=== PATIENT | male | born 1990 | race Caucasian/White ===

== ENCOUNTER 2017-09-11 06:19 | Emergency (ER) | payer OTHER | END 2017-09-11 07:24 | disposition left against medical advice (07) | LOC: ER 07:12 | DX: Z53.21 Procedure and treatment not carried out due to patient leaving prior to being seen by health care provider (principal) ==

== ENCOUNTER 2025-01-16 08:09 | Emergency (ER) | payer MEDICAID, OTHER ==
[~2025-01-16] VITALS: Ht 170.2 cm; Wt 75.0 kg
[2025-01-16 08:11] VITALS: O2SAT 96
[2025-01-16 08:20] VITALS: RESP 24
[2025-01-16] MEDS: IPRATROPIUM BROMIDE (0.02%) 0.5MG/2.5ML NEB HHN ONE (08:43)
[2025-01-16] MEDS: ALBUTEROL (0.083%) 2.5MG/3ML NEB HHN SCH (08:43)
[2025-01-16 09:01] LABS: BASOPHILS % 0.5 % (0.0-2.0); EOSINOPHILS % 2.5 % (0.0-5.0); HEMATOCRIT. 45.2 % (42.0-52.0); HEMOGLOBIN. 15.1 g/dL (14.0-18.0); LYMPHOCYTES % 16.5 % (20.0-50.0); MEAN PLATELET VOLUME 10.4 fl (7.4-10.4); MONOCYTES % 7.9 % (2.0-8.0); NEUTROPHILS % 72.6 % (40.0-76.0); PLATELET 237 x1000/uL (130-400); RED BLOOD CELL COUNT 5.29 mill/uL (4.7-6.1); RED CELL DISTRIBUTION WIDTH 14.7 % (11.6-14.6)
[2025-01-16 09:16] LABS: CREATININE 0.8 mg/dL (0.6-1.3)
[2025-01-16 09:17] LABS: TROPONIN I HIGH SENSITIVITY < 4 ng/L (3.0-53); UREA NITROGEN BLOOD 8 mg/dL (9-23)
[2025-01-16 09:18] LABS: ASPARTATE AMINOTRANSFERASE 23 IU/L (<34); BILIRUBIN DIRECT 0.2 mg/dL (<=3.0)
[2025-01-16 09:19] LABS: BILIRUBIN TOTAL 0.6 mg/dL (0.1-1.0); PROTEIN TOTAL 6.6 g/dL (6.0-8.3)
[2025-01-16 09:56] LABS: BG BASE EXCESS -3.7 mmol/L (-2.0-3.0); BG CARBOXYHEMOGLOBIN 0.3 % (0.5-1.5); BG DEOXYHEMOGLOBIN 0.3 % (0.0-5.0); BG FRACTION INSPIRED OXYGEN 100; BG HCO3 ACT 19.9 mmol/L (21.0-28.0); BG METHEMOGLOBIN 0.2 % (0.5-1.5); BG OXYGEN SATURATION 99.7 % (94.0-98.0); BG OXYHEMOGLOBIN 99.2 % (94.0-98.0); BG PCO2 32.5 mmHg (35.0-48.0); BG PH 7.405 (7.350-7.450); BG PO2 618.0 mmHg (83.0-108.0); BG SAMPLE SITE RIGHT BRACHIAL; BG TOTAL HEMOGLOBIN 16.2 g/dL (13.5-17.5); BG VENT MODE MASK - BIPAP; BG VENT RATE 24.0 set
[2025-01-16 10:09] LABS: *AMPHETAMINES SCREEN URINE PRESUMPTIVE POSITIVE (NEGATIVE); *BARBITURATES SCREEN URINE NEGATIVE (NEGATIVE); *BENZODIAZEPINES SCREEN URINE PRESUMPTIVE POSITIVE (NEGATIVE); *COCAINE SCREEN URINE NEGATIVE (NEGATIVE); CANNABINOID URINE SCREEN NEGATIVE (NEGATIVE); ECSTASY MDMA SCREEN URINE NEGATIVE (NEGATIVE); METHADONE URINE SCREEN NEGATIVE (NEGATIVE); OPIATES URINE SCREEN NEGATIVE (NEGATIVE); PHENCYCLIDINE URINE SCREEN NEGATIVE (NEGATIVE)
[2025-01-16 11:58] VITALS: BP 106/79; PULSE 117; RESP 21; TEMP 36.8; O2SAT 96
[2025-01-16] MEDS ORDERED: BUPR1FIL19 SL (19:26)
[2025-01-16] MEDS ORDERED: BUPR-46 PO (19:26)
[2025-01-16] MEDS ORDERED: GABA-1180 PO (19:26)
[2025-01-16] MEDS ORDERED: TRAZ-251 PO (19:26)
== END 2025-01-16 12:19 | disposition home or self-care (01) ==
LOC: ER 08:09
DX: R06.00 Dyspnea, unspecified (principal); R06.02 Shortness of breath; R06.03 Acute respiratory distress; Z79.899 Other long term (current) drug therapy
CPT/HCPCS: 80076; 80305; 80048; 83880; 85025; 85379; 84484; 36415; 71045; 94640; 82805; 82375; 93005; 99285; 36600; Z7610 ×2; 94660; 94664; 99291

== ENCOUNTER 2025-01-16 14:57 | Inpatient (IN) | payer MEDICAID ==
[~2025-01-16] VITALS: Ht 172.7 cm; Wt 95.3 kg
[2025-01-16] MEDS ORDERED: METHYLPREDNISOLONE SOD SUCC 125MG/2ML (ACT-O-VIAL) IV ONE (16:00)
[2025-01-16] MEDS: IPRATROPIUM/ALBUTEROL 0.5-3(2.5)MG/3ML NEB HHN ONE (16:05)
[2025-01-16] MEDS: ALBUTEROL (0.083%) 2.5MG/3ML NEB HHN ONE ×2 (16:05→17:51)
[2025-01-16] MEDS: PIPERACILLIN/TAZO 3.375G/50ML 50 ML IV ONE (16:11)
[2025-01-16] MEDS: ONDANSETRON HCL 4MG/2ML INJ IV ONE (16:11)
[2025-01-16] MEDS: LACTATED RINGERS 2,100 ML IV ONE (16:12)
[2025-01-16] MEDS: KETOROLAC 15MG/ML VIAL IM ONE (16:12)
[2025-01-16] MEDS: MORPHINE SULFATE 4 MG/ML INJ (FOR IV/IM USE) IV ONE (16:12)
[2025-01-16 16:25] LABS: BASOPHILS % 0.1 % (0.0-2.0); EOSINOPHILS % 0.2 % (0.0-5.0); HEMATOCRIT. 45.3 % (42.0-52.0); HEMOGLOBIN. 14.9 g/dL (14.0-18.0); LYMPHOCYTES % 9.8 % (20.0-50.0); MEAN PLATELET VOLUME 9.7 fl (7.4-10.4); MONOCYTES % 5.3 % (2.0-8.0); NEUTROPHILS % 84.6 % (40.0-76.0); PLATELET 258 x1000/uL (130-400); RED BLOOD CELL COUNT 5.20 mill/uL (4.7-6.1); RED CELL DISTRIBUTION WIDTH 15.5 % (11.6-14.6)
[2025-01-16 16:32] LABS: BG BASE EXCESS -6.0 mmol/L (-2.0-3.0); BG CARBOXYHEMOGLOBIN 0.1 % (0.5-1.5); BG DEOXYHEMOGLOBIN 0.3 % (0.0-5.0); BG FRACTION INSPIRED OXYGEN 100; BG HCO3 ACT 18.8 mmol/L (21.0-28.0); BG METHEMOGLOBIN 0.2 % (0.5-1.5); BG OXYGEN SATURATION 99.7 % (94.0-98.0); BG OXYHEMOGLOBIN 99.4 % (94.0-98.0); BG PCO2 35.6 mmHg (35.0-48.0); BG PH 7.341 (7.350-7.450); BG PO2 514.2 mmHg (83.0-108.0); BG SAMPLE SITE RIGHT RADIAL; BG TOTAL HEMOGLOBIN 15.9 g/dL (13.5-17.5); BG VENT MODE MASK - BIPAP; BG VENT RATE 24.0 set
[2025-01-16 16:38] LABS: CREATININE 1.0 mg/dL (0.6-1.3)
[2025-01-16 16:39] LABS: TROPONIN I HIGH SENSITIVITY < 4 ng/L (3.0-53); UREA NITROGEN BLOOD 7 mg/dL (9-23)
[2025-01-16 16:40] LABS: ASPARTATE AMINOTRANSFERASE 254 IU/L (<34)
[2025-01-16 16:41] LABS: BILIRUBIN DIRECT 0.2 mg/dL (<=3.0); BILIRUBIN TOTAL 0.4 mg/dL (0.1-1.0); PROTEIN TOTAL 6.9 g/dL (6.0-8.3)
[2025-01-16 16:42] LABS: INR 1.0
[2025-01-16 17:55] VITALS: RESP 32
[2025-01-16] MEDS: VANCOMYCIN 1G PREMIX 200 ML IV ONE (17:56)
[2025-01-16] MEDS ORDERED: HYDROMORPHONE HCL/PF 2MG/ML INJ IV ONE ×2 (19:15→22:00)
[2025-01-16] MEDS ORDERED: BUPR-46 PO (19:26)
[2025-01-16] MEDS ORDERED: GABA-1180 PO (19:26)
[2025-01-16] MEDS ORDERED: TRAZ-251 PO (19:26)
[2025-01-16] MEDS ORDERED: BUPR1FIL19 SL (19:26)
[2025-01-16] MEDS ORDERED: LIDOCAINE HCL/EPINEPHRINE 1%-EPI 1:100,000 30ML VIAL INFIL ONE (20:15)
[2025-01-16] MEDS: HYDROMORPHONE HCL/PF 1MG/ML INJ IV NR (20:44)
[2025-01-16] MEDS ORDERED: LIDOCAINE HCL/EPINEPHRINE 2%-EPI 1:200,000 20ML VIAL INJ NR (20:45)
[2025-01-16 21:51] VITALS: BP 110/73; PULSE 102; RESP 26; TEMP 36.4736
[2025-01-16 22:00] VITALS: BP 118/77; PULSE 109; RESP 20; TEMP 36.4; O2SAT 98
[2025-01-16] MEDS ORDERED: HYDROMORPHONE HCL/PF 1MG/ML INJ IV NR (22:15)
[2025-01-16] MEDS: HYDROMORPHONE HCL/PF 2MG/ML INJ IV ONE (22:28)
[2025-01-17] VITALS (11 sets, daily range): BP systolic 101–134; BP diastolic 67–85; PULSE 83–112; RESP 16–25; TEMP 36.8–37.3; O2SAT 94–100
[2025-01-17] MEDS: HYDROCODONE/ACETAMINOPHEN 10/325MG TABLET PO PRN ×2 (00:36→10:39)
[2025-01-17] MEDS: MORPHINE SULFATE 2 MG/ML INJ (NOT FOR IM USE) IV PRN (03:59)
[2025-01-17] MEDS: PIPERACILLIN/TAZO 3.375G/50ML 50 ML IV SCH (05:35)
[2025-01-17] MEDS: GABAPENTIN 300MG CAPSULE PO SCH (06:03)
[2025-01-17] MEDS: BUPROPION HCL 150MG TABLET XL 24HR PO SCH (09:12)
[2025-01-17] MEDS ORDERED: ONDANSETRON HCL 4MG/2ML INJ IV PRN (09:15)
[2025-01-17] MEDS ORDERED: NALOXONE HCL 0.4MG/ML VIAL IV PRN (10:45)
[2025-01-17] MEDS: IPRATROPIUM/ALBUTEROL 0.5-3(2.5)MG/3ML NEB HHN SCH (20:14)
[2025-01-17] MEDS: TRAZODONE HCL 50MG TABLET PO SCH (20:50)
[2025-01-18] VITALS (16 sets, daily range): BP systolic 95–133; BP diastolic 60–101; PULSE 80–106; RESP 18–38; TEMP 36.2–37.3; O2SAT 93–99
[2025-01-18 07:36] LABS: BASOPHILS % 0.4 % (0.0-2.0); EOSINOPHILS % 3.7 % (0.0-5.0); HEMATOCRIT. 35.4 % (42.0-52.0); HEMOGLOBIN. 12.0 g/dL (14.0-18.0); LYMPHOCYTES % 24.6 % (20.0-50.0); MEAN PLATELET VOLUME 10.2 fl (7.4-10.4); MONOCYTES % 7.7 % (2.0-8.0); NEUTROPHILS % 63.6 % (40.0-76.0); PLATELET 162 x1000/uL (130-400); RED BLOOD CELL COUNT 4.12 mill/uL (4.7-6.1); RED CELL DISTRIBUTION WIDTH 15.0 % (11.6-14.6)
[2025-01-18 07:57] LABS: CREATININE 0.7 mg/dL (0.6-1.3)
[2025-01-18 08:01] LABS: UREA NITROGEN BLOOD 6 mg/dL (9-23)
[2025-01-18] MEDS ORDERED: POTASSIUM CHLORIDE 20MEQ TABLET SR PO SCH (11:00)
[2025-01-18 11:13] LABS: *AMPHETAMINES SCREEN URINE NEGATIVE (NEGATIVE); *BARBITURATES SCREEN URINE NEGATIVE (NEGATIVE); *BENZODIAZEPINES SCREEN URINE PRESUMPTIVE POSITIVE (NEGATIVE)
[2025-01-18 11:14] LABS: *COCAINE SCREEN URINE NEGATIVE (NEGATIVE); CANNABINOID URINE SCREEN NEGATIVE (NEGATIVE); ECSTASY MDMA SCREEN URINE NEGATIVE (NEGATIVE); METHADONE URINE SCREEN NEGATIVE (NEGATIVE); OPIATES URINE SCREEN PRESUMPTIVE POSITIVE (NEGATIVE); PHENCYCLIDINE URINE SCREEN NEGATIVE (NEGATIVE)
[2025-01-18] MEDS: POTASSIUM CHLORIDE 20MEQ TABLET SR PO SCH (13:55)
[2025-01-18] MEDS: LORAZEPAM 1MG TABLET PO PRN (20:03)
[2025-01-18] MEDS: KETOROLAC 30MG/ML VIAL IV PRN (21:10)
[2025-01-19] VITALS (22 sets, daily range): BP systolic 106–130; BP diastolic 58–87; PULSE 69–94; RESP 16–24; TEMP 36.6–36.8; O2SAT 93–100
[2025-01-19 21:52] LABS: BASOPHILS % 0.8 % (0.0-2.0); EOSINOPHILS % 2.9 % (0.0-5.0); HEMATOCRIT. 38.1 % (42.0-52.0); HEMOGLOBIN. 12.9 g/dL (14.0-18.0); LYMPHOCYTES % 25.5 % (20.0-50.0); MEAN PLATELET VOLUME 9.7 fl (7.4-10.4); MONOCYTES % 9.0 % (2.0-8.0); NEUTROPHILS % 61.8 % (40.0-76.0); PLATELET 221 x1000/uL (130-400); RED BLOOD CELL COUNT 4.48 mill/uL (4.7-6.1); RED CELL DISTRIBUTION WIDTH 14.6 % (11.6-14.6)
[2025-01-19 22:02] LABS: CREATININE 0.7 mg/dL (0.6-1.3); UREA NITROGEN BLOOD 7 mg/dL (9-23)
[2025-01-20] VITALS (10 sets, daily range): BP systolic 106–131; BP diastolic 76–101; PULSE 64–101; RESP 13–21; TEMP 36.4; O2SAT 81–100
[2025-01-20 10:02] LABS: BASOPHILS % 0.8 % (0.0-2.0); EOSINOPHILS % 3.0 % (0.0-5.0); HEMATOCRIT. 37.5 % (42.0-52.0); HEMOGLOBIN. 12.6 g/dL (14.0-18.0); LYMPHOCYTES % 20.4 % (20.0-50.0); MEAN PLATELET VOLUME 9.6 fl (7.4-10.4); MONOCYTES % 8.4 % (2.0-8.0); NEUTROPHILS % 67.4 % (40.0-76.0); PLATELET 216 x1000/uL (130-400); RED BLOOD CELL COUNT 4.41 mill/uL (4.7-6.1); RED CELL DISTRIBUTION WIDTH 14.6 % (11.6-14.6)
[2025-01-20 10:16] LABS: CREATININE 0.7 mg/dL (0.6-1.3); UREA NITROGEN BLOOD 9 mg/dL (9-23)
== END 2025-01-20 10:50 | disposition home or self-care (01) | DRG 135 ==
LOC: ER 15:01 → 5EST 19:10 → EDBEDREQTM 19:27 → EDBEDREQ 19:27 → EDBEDREQSVC 19:27 → ENRESERV 20:16
PROVIDERS: ADMIT Internal Medicine; ATTEND Internal Medicine
PROC: 0W9930Z Drainage of Right Pleural Cavity with Drainage Device, Percutaneous Approach (ICD-10-PCS; principal; 2025-01-16)
PROC: 5A09357 Assistance with Respiratory Ventilation, Less than 24 Consecutive Hours, Continuous Positive Airway Pressure (ICD-10-PCS; 2025-01-16)
PROC: 5A0935A Assistance with Respiratory Ventilation, Less than 24 Consecutive Hours, High Flow/Velocity Cannula (ICD-10-PCS; 2025-01-16)
DX: S27.0XXA Traumatic pneumothorax, initial encounter (principal); J96.00 Acute respiratory failure, unspecified whether with hypoxia or hypercapnia; R57.9 Shock, unspecified; E87.6 Hypokalemia; J96.01 Acute respiratory failure with hypoxia; D72.829 Elevated white blood cell count, unspecified; F15.10 Other stimulant abuse, uncomplicated; F17.210 Nicotine dependence, cigarettes, uncomplicated; I10 Essential (primary) hypertension; F19.10 Other psychoactive substance abuse, uncomplicated; X58.XXXA Exposure to other specified factors, initial encounter; Y93.89 Activity, other specified; Y92.89 Other specified places as the place of occurrence of the external cause; Y99.8 Other external cause status
CPT/HCPCS: 32551; 36415; 36600; 71045; 71275; 80048; 80076; 80305; 82375; 82805; 83605; 83735; 83880; 84145; 84484; 85025; 85379; 93005; 94070; 94640; 94660; 94664; 94760; 99291; 99292; A4606; J1171; J1885; J2270; J2405; J2543; J3373; J3490; J7120